=== PATIENT | male | born 1950 | race Caucasian/White ===

== ENCOUNTER 2017-02-24 08:00 | Outpatient (CLI) | payer BC ==
[2017-02-24 14:45] LABS: BASOPHILS % (AUTO) 0.4 %; EOSINOPHILS # (AUTO) 0.1 10^3/uL (0.0-0.7); EOSINOPHILS % (AUTO) 1.9 %; HCT - HEMATOCRIT 44.9 % (42.0-52.0); HGB - HEMOGLOBIN 15.8 g/dL (14.0-18.0); LYMPHOCYTES # (AUTO) 1.3 10^3/uL (1.5-3.5); LYMPHOCYTES % (AUTO) 29.5 %; MEAN CORPUSCULAR HEMOGLOBIN 30.2 pg (27.0-31.0); MEAN CORPUSCULAR HGB CONC 35.1 g/dL (32.0-36.0); MEAN PLATELET VOLUME 7.4 fL (7.4-11.4); MONOCYTES # (AUTO) 0.4 10^3/uL (0.0-1.0); MONOCYTES % (AUTO) 9.4 %; NEUTROPHILS # (AUTO) 2.6 10^3/uL (1.5-6.6); NEUTROPHILS % (AUTO) 58.8 %; NUCLEATED RED BLOOD CELLS AUTO 0.1 /100WBC; RED BLOOD COUNT 5.22 10^6/uL (4.70-6.10); UNCORRECTED WHITE BLOOD COUNT 4.4 x10^3/uL; WHITE BLOOD COUNT 4.4 x10^3/uL (4.8-10.8)
[2017-02-24 15:03] LABS: ALBUMIN/GLOBULIN RATIO 1.4 (1.0-2.2); BILIRUBIN,TOTAL 1.7 mg/dL (0.2-1.0); CALCIUM 9.2 mg/dL (8.5-10.3); CREATININE 0.9 mg/dL (0.6-1.2); POTASSIUM 3.8 mmol/L (3.5-5.0); TOTAL PROTEIN 7.1 g/dL (6.7-8.2)
[2017-02-24 15:10] LABS: HEMOGLOBIN A1C 0.6 g/dL
== END 2017-02-24 08:01 | disposition home or self-care (01) ==
LOC: LAB.N 08:00
PROVIDERS: ATTEND Internal Medicine
DX: R73.9 Hyperglycemia, unspecified (principal); I10 Essential (primary) hypertension; N40.0 Benign prostatic hyperplasia without lower urinary tract symptoms
CPT/HCPCS: 36415; 80053; 83036; 85025

== ENCOUNTER 2017-07-25 08:00 | Outpatient (CLI) | payer BC ==
[2017-07-25 20:01] LABS: PSA FREE 0.49 ng/mL (0.16-2.81)
[2017-07-25 20:02] LABS: PSA TOTAL 2.27 ng/mL (0.000-2.000)
== END 2017-07-25 08:01 ==
LOC: LAB.N 08:00
PROVIDERS: ATTEND Urology
DX: R39.89 Other symptoms and signs involving the genitourinary system (principal)
CPT/HCPCS: 36415; 84154

== ENCOUNTER → 2018-02-20 | Outpatient (CLI) | payer BC ==
[2018-02-20 13:52] LABS: BASOPHILS % (AUTO) 0.7 %; EOSINOPHILS # (AUTO) 0.1 10^3/uL (0.0-0.7); EOSINOPHILS % (AUTO) 2.3 %; HGB - HEMOGLOBIN 15.6 g/dL (14.0-18.0); LYMPHOCYTES # (AUTO) 1.2 10^3/uL (1.5-3.5); LYMPHOCYTES % (AUTO) 26.8 %; MEAN CORPUSCULAR HEMOGLOBIN 30.6 pg (27.0-31.0); MEAN CORPUSCULAR HGB CONC 35.6 g/dL (32.0-36.0); MEAN CORPUSCULAR VOLUME 86.1 fL (80.0-94.0); MEAN PLATELET VOLUME 7.5 fL (7.4-11.4); MONOCYTES # (AUTO) 0.3 10^3/uL (0.0-1.0); MONOCYTES % (AUTO) 8.1 %; NEUTROPHILS # (AUTO) 2.7 10^3/uL (1.5-6.6); NEUTROPHILS % (AUTO) 62.1 %; PLT - PLATELET COUNT 202 10^3/uL (130-450); RED BLOOD COUNT 5.08 10^6/uL (4.70-6.10); RED CELL DISTRIBUTION WIDTH 12.9 % (12.0-15.0); WHITE BLOOD COUNT 4.3 x10^3/uL (4.8-10.8)
[2018-02-20 14:18] LABS: ALBUMIN 3.7 g/dL (3.2-5.5); ALBUMIN/GLOBULIN RATIO 1.2 (1.0-2.2); BILIRUBIN,TOTAL 1.8 mg/dL (0.2-1.0); CREATININE 0.8 mg/dL (0.6-1.2); TOTAL PROTEIN 6.8 g/dL (6.7-8.2)
[2018-02-20 14:34] LABS: HB2 TOTAL 17.2 g/dL; HEMOGLOBIN A1C 0.57 g/dL; HEMOGLOBIN A1C % 5.2 % (4.6-6.2)
== END ==
LOC: LAB.N 08:00
PROVIDERS: ATTEND Internal Medicine
DX: R73.9 Hyperglycemia, unspecified (principal); N40.0 Benign prostatic hyperplasia without lower urinary tract symptoms; I10 Essential (primary) hypertension; Z79.899 Other long term (current) drug therapy; Z12.5 Encounter for screening for malignant neoplasm of prostate
CPT/HCPCS: 36415; 80053; 83036; 84153; 85025

== ENCOUNTER 2018-09-10 08:00 | Outpatient (CLI) | payer BC | END 2018-09-10 23:59 | disposition home or self-care (01) | LOC: LAB.N 08:00 | PROVIDERS: ATTEND Urology | DX: R39.89 Other symptoms and signs involving the genitourinary system (principal) | CPT/HCPCS: 36415; 84153 ==

== ENCOUNTER 2018-11-26 10:40 | Outpatient (CLI) | payer BC ==
--- NOTE | 2018-11-27 11:23 | XRAY Report ---
Reason: MUSCLE SPASM, HIP JOINT PX, RIGHT Procedure Date: 11/26/2018 Accession Number: [id number] / [id number] Procedure: XR - Hip w/Pelvis 2-3V RT CPT Code: FULL RESULT: EXAM: RIGHT HIP RADIOGRAPHY EXAM DATE: 11/26/2018 11:49 AM. CLINICAL HISTORY: Muscle spasm, hip joint pain, right. COMPARISON: HIP W/PELVIS 2-3V RT 11/27/2015 12:40 PM. TECHNIQUE: 2 views. FINDINGS: Bones: Stable appearance of moderate joint space narrowing and osteophytic spurring of the acetabulum at the right hip. No femoral head collapse. No subluxation. Imaged portion of the sacroiliac joints appear stable and within normal limits. Joints: Normal. No dislocation. The hip joint space is preserved. Soft Tissues: Normal. No soft tissue swelling. IMPRESSION: No significant change in moderate degenerative changes at right hip. RADIA
== END 2018-11-26 10:41 | disposition home or self-care (01) ==
LOC: DI 10:40
PROVIDERS: ATTEND Family Medicine
DX: M16.11 Unilateral primary osteoarthritis, right hip (principal); M62.830 Muscle spasm of back

== ENCOUNTER 2019-03-01 11:23 | Outpatient (CLI) | payer BC ==
[2019-03-01 18:35] LABS: BASOPHILS % (AUTO) 0.5 %; EOSINOPHILS # (AUTO) 0.1 10^3/uL (0.0-0.7); EOSINOPHILS % (AUTO) 1.2 %; HGB - HEMOGLOBIN 15.3 g/dL (14.0-18.0); LYMPHOCYTES % (AUTO) 25.3 %; MEAN CORPUSCULAR HEMOGLOBIN 29.1 pg (27.0-31.0); MEAN CORPUSCULAR HGB CONC 32.3 g/dL (32.0-36.0); MEAN CORPUSCULAR VOLUME 90.1 fL (80.0-94.0); MEAN PLATELET VOLUME 9.3 fL (7.4-11.4); MONOCYTES # (AUTO) 0.4 10^3/uL (0.0-1.0); MONOCYTES % (AUTO) 9.1 %; NEUTROPHILS # (AUTO) 2.6 10^3/uL (1.5-6.6); NEUTROPHILS % (AUTO) 63.4 %; PLT - PLATELET COUNT 188 10^3/uL (130-450); RED BLOOD COUNT 5.26 10^6/uL (4.70-6.10); RED CELL DISTRIBUTION WIDTH 13.2 % (12.0-15.0); WHITE BLOOD COUNT 4.1 x10^3/uL (4.8-10.8)
[2019-03-01 18:49] LABS: ALBUMIN 4.2 g/dL (3.2-5.5); ALBUMIN/GLOBULIN RATIO 1.3 (1.0-2.2); ALKALINE PHOSPHATASE 64 IU/L (42-121); ALT ALANINE AMINOTRANSFERASE 16 IU/L (10-60); AST ASPARTATE AMINOTRANSFERASE 18 IU/L (10-42); BILIRUBIN,TOTAL 1.6 mg/dL (0.2-1.0); BUN - BLOOD UREA NITROGEN 18 mg/dL (6-20); CARBON DIOXIDE - CO2 30 mmol/L (21-32); CHLORIDE 105 mmol/L (101-111); CHOL/HDL RATIO 3.4 (<5.0); CHOLESTEROL 171 mg/dL; CREATININE 0.9 mg/dL (0.6-1.2); GFR - MDRD 84 (>89); GLUCOSE 106 mg/dL (70-100); HDL CHOLESTEROL 51 mg/dL; LDL CHOLESTEROL,CALCULATED 100 mg/dL; SODIUM 142 mmol/L (135-145); TOTAL PROTEIN 7.4 g/dL (6.7-8.2); VLDL CHOLESTEROL 20 mg/dL
== END 2019-03-01 23:59 | disposition home or self-care (01) ==
LOC: LAB.N 11:23
PROVIDERS: ATTEND Family Medicine
DX: E80.4 Gilbert syndrome (principal); R73.09 Other abnormal glucose; N40.0 Benign prostatic hyperplasia without lower urinary tract symptoms; I10 Essential (primary) hypertension
CPT/HCPCS: 36415; 80053; 80061; 83721; 84153; 84443; 85025

== ENCOUNTER 2019-09-25 14:35 | Outpatient (CLI) | payer OTHER, BC | END 2019-09-25 23:59 | disposition home or self-care (01) | LOC: LAB.WCP 14:35 | PROVIDERS: ATTEND Urology | DX: R97.20 Elevated prostate specific antigen [PSA] (principal) | CPT/HCPCS: 36415; 84153 ==

== ENCOUNTER 2020-04-27 08:57 | Outpatient (CLI) | payer BC, OTHER ==
[2020-04-27 12:43] LABS: BASOPHILS % (AUTO) 0.6 %; EOSINOPHILS # (AUTO) 0.2 10^3/uL (0.0-0.7); EOSINOPHILS % (AUTO) 3.9 %; HGB - HEMOGLOBIN 15.8 g/dL (14.0-18.0); LYMPHOCYTES # (AUTO) 1.4 10^3/uL (1.5-3.5); LYMPHOCYTES % (AUTO) 28.2 %; MEAN CORPUSCULAR HEMOGLOBIN 29.3 pg (27.0-31.0); MEAN CORPUSCULAR HGB CONC 33.6 g/dL (32.0-36.0); MEAN PLATELET VOLUME 9.2 fL (7.4-11.4); MONOCYTES # (AUTO) 0.5 10^3/uL (0.0-1.0); MONOCYTES % (AUTO) 9.9 %; NEUTROPHILS # (AUTO) 2.8 10^3/uL (1.5-6.6); NEUTROPHILS % (AUTO) 57.2 %; PLT - PLATELET COUNT 197 10^3/uL (130-450); RED CELL DISTRIBUTION WIDTH 13.1 % (12.0-15.0); WHITE BLOOD COUNT 4.9 x10^3/uL (4.8-10.8)
[2020-04-27 13:28] LABS: ALBUMIN 4.2 g/dL (3.2-5.5); ALBUMIN/GLOBULIN RATIO 1.4 (1.0-2.2); ALKALINE PHOSPHATASE 68 IU/L (42-121); ALT ALANINE AMINOTRANSFERASE 17 IU/L (10-60); AST ASPARTATE AMINOTRANSFERASE 20 IU/L (10-42); BUN - BLOOD UREA NITROGEN 13 mg/dL (6-20); CALCIUM 9.2 mg/dL (8.5-10.3); CARBON DIOXIDE - CO2 28 mmol/L (21-32); CHLORIDE 105 mmol/L (101-111); CHOL/HDL RATIO 3.6 (<5.0); CHOLESTEROL 173 mg/dL; CREATININE 0.9 mg/dL (0.6-1.2); GLUCOSE 104 mg/dL (70-100); HDL CHOLESTEROL 48 mg/dL; LDL CHOLESTEROL,CALCULATED 97 mg/dL; TOTAL PROTEIN 7.3 g/dL (6.7-8.2); VLDL CHOLESTEROL 28 mg/dL
[2020-04-27 14:02] LABS: HEMOGLOBIN A1c% 5.3 % (4.27-6.07)
== END 2020-04-27 23:59 ==
LOC: LAB.WCP 08:57
PROVIDERS: ATTEND Family Medicine
DX: I10 Essential (primary) hypertension (principal); R73.9 Hyperglycemia, unspecified; N40.0 Benign prostatic hyperplasia without lower urinary tract symptoms; E80.4 Gilbert syndrome
CPT/HCPCS: 36415; 80053; 80061; 83036; 83721; 84153; 84443; 85025

== ENCOUNTER 2020-09-13 14:00 | Outpatient (CLI) | payer OTHER | END 2020-09-13 14:01 | disposition short-term general hospital (02) | LOC: EMS 14:00 | DX: R07.9 Chest pain, unspecified (principal) | CPT/HCPCS: A0425; A0433 ==

== ENCOUNTER 2020-09-29 08:00 | Outpatient (CLI) | payer OTHER | END 2020-09-29 23:59 | disposition home or self-care (01) | LOC: LAB.WCP 08:00 | PROVIDERS: ATTEND Urology | DX: R97.20 Elevated prostate specific antigen [PSA] (principal) | CPT/HCPCS: 36415; 84153 ==

== ENCOUNTER 2020-10-09 08:00 | Outpatient (CLI) | payer OTHER ==
[2020-10-09 13:04] LABS: BUN - BLOOD UREA NITROGEN 14 mg/dL (6-20); CALCIUM 9.4 mg/dL (8.5-10.3); CARBON DIOXIDE - CO2 29 mmol/L (21-32); CHLORIDE 100 mmol/L (101-111); CHOL/HDL RATIO 2.1 (<5.0); CHOLESTEROL 92 mg/dL; GFR - MDRD 74 (>89); GLUCOSE 105 mg/dL (70-100); HDL CHOLESTEROL 43 mg/dL; LDL CHOLESTEROL,CALCULATED 37 mg/dL; LDL/HDL RATIO 0.9 (<3.6); SODIUM 138 mmol/L (135-145); TRIGLYCERIDES 58 mg/dL; VLDL CHOLESTEROL 12 mg/dL
== END 2020-10-09 23:59 | disposition home or self-care (01) ==
LOC: LAB.WCP 08:00
PROVIDERS: ATTEND Internal Medicine Cardiovascular Disease
DX: E78.2 Mixed hyperlipidemia (principal)
CPT/HCPCS: 36415; 80048; 80061; 83721

== ENCOUNTER 2022-09-25 14:11 | Outpatient (CLI) | payer OTHER | END 2022-09-25 23:59 | disposition short-term general hospital (02) | LOC: EMS 14:11 | DX: R09.89 Other specified symptoms and signs involving the circulatory and respiratory systems (principal); Z95.0 Presence of cardiac pacemaker | CPT/HCPCS: A0425; A0429 ==

== ENCOUNTER 2023-11-03 15:29 | Emergency (ER) | payer OTHER ==
--- NOTE | 2023-11-03 15:54 | ED Physician Documentation ---
History of Present Illness - Stated complaint Stated Complaint: - Chief complaint Chief Complaint: Abd Pain - History obtained from History obtained from: Patient - History of Present Illness Pain level max: 0 Pain level now: 0 - Additonal information Additional information: Patient is a 72-year-old male who is status post a TURP 3 days ago at [facility]. He had blood clots that clogged his urinary catheter yesterday, was irrigated in the urology office. He states that the catheter is draining bloody urine still and with that it has not been draining as much as he would expect, therefore he was directed to the emergency department for evaluation. He states he stopped his Pradaxa 5 days ago and aspirin 8 days ago. No abdominal pain. No suprapubic pain. He is taking oxybutynin for bladder spasms. Review of Systems Constitutional: denies: Fever, Chills GI: denies: Vomiting, Diarrhea Skin: denies: Rash Musculoskeletal: denies: Neck pain, Back pain Neurologic: denies: Headache PD PAST MEDICAL HISTORY - Past Medical History Past Medical History: Yes Cardiovascular: Hypertension Respiratory: None Endocrine/Autoimmune: None GI: Hiatal hernia, Other : Benign prostate hypertrophy, Frequency HEENT: Other Psych: None Musculoskeletal: None Derm: Eczema - Past Surgical History Past Surgical History: Yes General: Cholecystectomy - Present Medications Home Medications: Ambulatory Orders Medication Instructions Recorded Confirmed Aspirin [Aspir 81] 81 mg PO DAILY 02/24/15 03/03/15 Doxazosin Mesylate 8 mg PO DAILY 02/24/15 03/06/15 Finasteride 5 mg PO ONCE 02/24/15 03/06/15 lisinopriL [Lisinopril] 10 mg PO DAILY 02/24/15 03/06/15 Cholecalciferol (Vitamin D3) 2,000 unit PO DAILY 03/03/15 03/06/15 [Vitamin D-3] Glucosa [place] 2Kcl/Chondroitin [place] 1 each PO DAILY 03/03/15 03/06/15 [Glucosamine & Chondroitin Cap] [place]-3 Fatty Acids [Fish Oil] 300 mg PO DAILY 03/03/15 03/06/15 - Allergies Allergies/Adverse Reactions: Allergies Allergy/AdvReac Type Severity Reaction Status Date / Time latex Allergy Unknown Rash Verified 11/03/23 15:33 crab Allergy Itching Verified 08/02/24 15:33 - Social History Does the pt smoke?: No Smoking Status: Never smoker Does the pt drink ETOH?: No Does the pt have substance abuse?: No - Immunizations Immunizations are current?: Yes - POLST Patient has POLST: No PD ED PE NORMAL - Vitals Vital signs reviewed: Yes - General General: Alert and oriented X 3, No acute distress - HEENT HEENT: Moist mucous membranes - Neck Neck: Supple, no meningeal sign - Cardiac Cardiac: RRR - Respiratory Respiratory: No respiratory distress, Clear bilaterally - Abdomen Abdomen: Soft, Non tender, Non distended - Derm Derm: Warm and dry - Neuro Neuro: Alert and oriented X 3 - Psych Psych: Normal mood, Normal affect Results - Vitals Vitals: Vital Signs - 24 hr 11/03/23 15:33 Temperature 36.8 C Heart Rate 60 Respiratory 16 Rate Blood Pressure 100/60 O2 Saturation 99 Oxygen O2 Source Room air - Labs Labs: Laboratory Tests 11/03/23 11/03/23 11/03/23 15:51 15:51 15:51 WBC 5.9 RBC 4.46 L Hgb 13.3 L Hct 39.8 L MCV 89.2 MCH 29.8 MCHC 33.4 RDW 13.0 Plt Count 165 MPV 8.7 Neut # (Auto) 4.0 Lymph # (Auto) 1.0 L [place] # (Auto) 0.8 Eos # (Auto) 0.1 Baso # (Auto) 0.0 Absolute Nucleated RBC 0.00 Nucleated RBC % 0.0 PT 13.5 H INR 1.2 Sodium 135 Potassium 3.5 Chloride 102 Carbon Dioxide 27 Anion Gap 6.0 BUN 21 H Creatinine 1.2 Estimated GFR (MDRD) 59 L Glucose 116 H Calcium 8.8 Total Bilirubin 2.0 H AST 19 ALT 19 Alkaline Phosphatase 71 Total Protein 6.1 L Albumin 3.6 Globulin 2.5 Albumin/Globulin Ratio 1.4 PD Medical Decision Making - ED course Complexity details: reviewed results, re-evaluated patient, considered differential, d/w patient ED course: Bedside ultrasound reveals very little urine in the bladder. The bladder was irrigated, clear urine returned. All of the fluid that was placed into the bladder returned into the bag. No significant clots. The patient was instructed on how to perform gentle irrigation at home if needed. He was given a syringe and saline for this as well. He has an appointment on Monday with his urologist. No significant lab abnormalities. Patient counseled regarding signs and symptoms for which I believe and urgent re-evaluation would be necessary. Patient with good understanding of and agreement to plan and is comfortable going home at this time This document was made in part using voice recognition software. While efforts are made to proofread this document, sound alike and grammatical errors may occur. Departure - Departure Disposition: Home, Self Care Clinical Impression: Hematuria Qualifiers: Hematuria type: gross Qualified Code(s): R31.0 - Gross hematuria Condition: Good Instructions: ED Hematuria Follow-Up: [facility], [Primary Care Provider] - Within 1 week Comments: Please follow-up with your urologist on Monday as scheduled. Your Carrillo catheter was irrigated today. You can also irrigate at home as instructed. P lease return if you worsen. Forms: PCP List
[2023-11-03 16:08] LABS: BASOPHILS % (AUTO) 0.5 %; EOSINOPHILS # (AUTO) 0.1 10^3/uL (0.0-0.7); EOSINOPHILS % (AUTO) 1.4 %; HCT - HEMATOCRIT 39.8 % (42.0-52.0); HGB - HEMOGLOBIN 13.3 g/dL (14.0-18.0); LYMPHOCYTES % (AUTO) 16.7 %; MEAN CORPUSCULAR HEMOGLOBIN 29.8 pg (27.0-31.0); MEAN CORPUSCULAR HGB CONC 33.4 g/dL (32.0-36.0); MEAN CORPUSCULAR VOLUME 89.2 fL (80.0-94.0); MEAN PLATELET VOLUME 8.7 fL (7.4-11.4); MONOCYTES # (AUTO) 0.8 10^3/uL (0.0-1.0); MONOCYTES % (AUTO) 13.2 %; NEUTROPHILS % (AUTO) 67.9 %; PLT - PLATELET COUNT 165 10^3/uL (130-450); RED BLOOD COUNT 4.46 10^6/uL (4.70-6.10); WHITE BLOOD COUNT 5.9 x10^3/uL (4.8-10.8)
[2023-11-03 16:20] LABS: INR 1.2 (0.8-1.2); PT - PROTHROMBIN TIME 13.5 secs (9.9-12.6)
[2023-11-03 16:26] LABS: ALBUMIN 3.6 g/dL (3.2-5.5); ALBUMIN/GLOBULIN RATIO 1.4 (1.0-2.2); CALCIUM 8.8 mg/dL (8.5-10.3); CREATININE 1.2 mg/dL (0.6-1.3); POTASSIUM 3.5 mmol/L (3.5-4.5); TOTAL PROTEIN 6.1 g/dL (6.4-8.9)
[2023-11-03 16:46] VITALS: BP 107/64; O2SAT 100
== END 2023-11-03 16:37 | disposition home or self-care (01) ==
LOC: ED 15:29
DX: R31.0 Gross hematuria (principal); Z90.79 Acquired absence of other genital organ(s); Z96.0 Presence of urogenital implants
CPT/HCPCS: 36415; 51700; 80053; 85025; 85610; 99282

== ENCOUNTER 2025-03-24 13:27 | Observation (INO) ==
--- NOTE | 2025-03-24 13:30 | ED Physician Documentation ---
PD HPI CHEST PAIN Stated complaint Stated Complaint: CP Chief complaint Chief Complaint: Cardiac Additional information Additional information: 74-year-old male with history of NE in 2020 resulting in a stent placement and pacemaker presents emergency department for multiple complaints. Patient says he started experiencing chest pain that he originally thought was acid reflux for last 3 to 4 days yesterday he started to notice that he was having potentially low-grade fevers as he was experiencing rigors at home today when he woke up he started experiencing worsening chest pain that felt very similar to previous NE it resulted in again fevers and chills and rigors he called 911 to bring him into the ER for further evaluation he currently feels like his chest pain symptoms have improved significantly but still feeling some discomfort. Meds/Allgy Home Medications Ambulatory Orders Medication Instructions Recorded Confirmed aspirin 81 mg tablet,delayed 81 mg PO DAILY 02/24/15 1 05/25/24 release (Aspir-) finasteride 5 mg tablet 5 mg PO ONCE 02/24/15 cholecalciferol (vitamin D3) 50 2,000 unit PO DAILY 03/24/25 mcg (2,000 unit) capsule (Vitamin D3) glucosamine sulfate dipotassium Cl 1 ea PO DAILY 03/0303/24/25 500 mg-chondroitin 400 mg capsule (Glucosamine Sulfate 2 KCL-Chondroitin) atorvastatin 40 mg tablet 40 mg PO DAILY 11/03/2303/04 sacubitril 24 mg-valsartan 26 mg 1 ea PO DAILY 4 03/24/25 tablet (Entresto) bisoprolol fumarate 2.5 mg tablet 2.5 mg PO QDAY 01/0203/24/25 dabigatran etexilate 75 mg capsule 75 mg PO BID 03/24/25 nitroglycerin 0.4 mg sublingual mg sublingual 01/02/25 01/02/25 tablet silodosin 4 mg capsule 4 mg PO QDAY 01/02/25 methimazole 10 mg tablet 10 mg PO TID 03/24/25 Allergies Allergies Allergy/AdvReac Type Severity Reaction Status Date / Time crab Allergy Severe Itching Verified 03/24/25 13:38 latex Allergy Severe Rash Verified 03/24/25 13:38 tadalafil Allergy Cramps Verified 03/24/25 13:38 PFSH Active Problems All Active Problems (Updated 03/24/25 @ 18:37 by Brandyn Chacon MD) H/O transurethral resection of prostate (Acute) Amiodarone-induced thyroiditis (Acute) Ischemic cardiomyopathy with implantable cardioverter-defibrillator (ICD) (Acute) Coronary artery disease (Acute) Viral syndrome (Acute) Febrile (Acute) Atrial fibrillation with rapid ventricular response (Chronic) Medical History Medical History Pacemaker Afib Myocardial infarct Myocardial infarct Surgical History Surgical History History of heart surgery Social History Social History Smoking Status: Never smoker Do you dip or chew tobacco?: No Do you vape?: No Level: Independent Do you feel safe in your home environment?: Yes History of physical, verbal, emotional, or financial abuse?: No ETOH Use: POLST Patient has POLST: No Exam Exam Vital Signs: Vital Signs x48h Temp Pulse Resp BP Pulse Ox 03/24/25 17:45 120 H 18 83/61 L 92 03/24/25 17:30 109 H 18 96/65 94 03/24/25 17:15 113 H 18 105/64 95 03/24/25 17:00 120 H 22 111/70 95 03/24/25 16:45 107 H 18 111/70 95 03/24/25 16:30 120 H 18 95/64 95 03/24/25 16:15 121 H 18 95/68 96 03/24/25 16:00 39 C H 117 H 19 95 03/24/25 15:52 120 H 19 110/72 95 03/24/25 13:33 37.1 C 97 18 100/67 100 Constitutional normal general appearance, no apparent distress, average body habitus, no limitations and alert HENMT normocephalic and head/scalp atraumatic Eyes PERRL Neck/C-Spine visual inspection normal Respiratory breath sounds equal bilaterally and normal respiratory effort Cardiovascular heart rate abnormal (tachycardic) and rhythm abnormal (irregular) Gastrointestinal abdomen normal to inspection and abdomen soft to palpation Genitourinary no CVA tenderness Extremities normal to inspection Skin skin color normal and no rash Results Vitals Vitals: Vital Signs - 24 hr 03/24/25 13:33 03/24/25 15:52 03/24/25 16:00 Temperature 37.1 C 39 C H Temperature Source Oral Temporal Artery Scan Pulse Rate 97 120 H 117 H Respiratory Rate 18 19 19 Blood Pressure 100/67 110/72 O2 Saturation 100 95 95 O2 Source Room air Room air Room air Pain Intensity 4 0 2 03/24/25 16:15 03/24/25 16:30 03/24/25 16:44 Temperature Temperature Source Pulse Rate 121 H 120 H Respiratory Rate 18 18 Blood Pressure 95/68 95/64 O2 Saturation 96 95 O2 Source Room air Room air Pain Intensity 0 03/24/25 16:45 03/24/25 17:00 03/24/25 17:15 Temperature Temperature Source Pulse Rate 107 H 120 H 113 H Respiratory Rate 18 22 18 Blood Pressure 111/70 111/70 105/64 O2 Saturation 95 95 95 O2 Source Room air Room air Room air Pain Intensity 0 03/24/25 17:30 03/24/25 17:45 Temperature Temperature Source Pulse Rate 109 H 120 H Respiratory Rate 18 18 Blood Pressure 96/65 83/61 L O2 Saturation 94 92 O2 Source Room air Room air Pain Intensity Oxygen O2 Source Room air EKG (time done) 1329: EKG releavant findings:: EKG personally interpreted by author of this note. Relevant findings are: Rate: Rate (enter#) (99) Rhythm: Atrial fibrillation [place]: Normal Intervals: Normal [place] Ischemia: Normal ST segments Computer interpretation: Agree with computer Labs Labs: Laboratory Tests 03/24/25 03/24/25 03/24/25 13:51 14:30 16:15 WBC 8.0 RBC 5.26 Hgb 14.6 Hct 44.9 MCV 85.4 MCH 27.8 MCHC 32.5 RDW 13.1 Plt Count 209 MPV 8.9 Neut # (Auto) 5.3 Lymph # (Auto) 1.7 [place] # (Auto) 1.0 Eos # (Auto) 0.0 Baso # (Auto) 0.0 Absolute Nucleated RBC 0.00 Nucleated RBC % 0.0 Sodium 137 Potassium 4.0 Chloride 102 Carbon Dioxide 29 Anion Gap 6.0 BUN 15 Creatinine 0.8 Estimated GFR (MDRD) 94 Glucose 98 Lactic Acid Calcium 9.0 Total Bilirubin 2.1 H AST 17 ALT 18 Alkaline Phosphatase 90 Troponin I High Sens 6.6 7.4 B-Natriuretic Peptide 348 H Total Protein 6.7 Albumin 3.9 Globulin 2.8 Albumin/Globulin Ratio 1.4 Lipase 19 TSH < 0.01 L Urine Color YELLOW Urine Clarity CLEAR Urine pH 7.0 Ur Specific [place] 1.015 Urine Protein NEGATIVE Urine Glucose (UA) NEGATIVE Urine Ketones NEGATIVE Urine Occult Blood NEGATIVE Urine Nitrite NEGATIVE Urine Bilirubin NEGATIVE Urine Urobilinogen 0.2 (NORMAL) Ur Leukocyte Esterase NEGATIVE Ur Microscopic Review NOT INDICATED Urine Culture Comments NOT INDICATED Nasal Adenovirus (PCR) Nasal B. parapertussis DNA (PCR) Nasal Coronavir 229E PCR Nasal Coronavir HKU1 PCR Nasal Coronavir NL63 PCR Nasal Coronavir OC43 PCR Nasal Enterovir/Rhinovir PCR Nasal Influenza B PCR Nasal Influenza A PCR Nasal Parainfluen 1 PCR Nasal Parainfluen 2 PCR Nasal Parainfluen 3 PCR Nasal Parainfluen 4 PCR Nasal RSV (PCR) Nasal B.pertussis DNA PCR Nasal C.pneumoniae (PCR) [place] Human Metapneumo PCR Nasal M.pneumoniae (PCR) Nasal SARS-CoV-2 (PCR) 03/24/25 03/24/25 16:45 17:01 WBC RBC Hgb Hct MCV MCH MCHC RDW Plt Count MPV Neut # (Auto) Lymph # (Auto) [place] # (Auto) Eos # (Auto) Baso # (Auto) Absolute Nucleated RBC Nucleated RBC % Sodium Potassium Chloride Carbon Dioxide Anion Gap BUN Creatinine Estimated GFR (MDRD) Glucose Lactic Acid 1.0 Calcium Total Bilirubin AST ALT Alkaline Phosphatase Troponin I High Sens B-Natriuretic Peptide Total Protein Albumin Globulin Albumin/Globulin Ratio Lipase TSH Urine Color Urine Clarity Urine pH Ur Specific [place] Urine Protein Urine Glucose (UA) Urine Ketones Urine Occult Blood Urine Nitrite Urine Bilirubin Urine Urobilinogen Ur Leukocyte Esterase Ur Microscopic Review Urine Culture Comments Nasal Adenovirus (PCR) NOT DETECTED Nasal B. parapertussis DNA (PCR) NOT DETECTED Nasal Coronavir 229E PCR NOT DETECTED Nasal Coronavir HKU1 PCR NOT DETECTED Nasal Coronavir NL63 PCR NOT DETECTED Nasal Coronavir OC43 PCR NOT DETECTED Nasal Enterovir/Rhinovir PCR NOT DETECTED Nasal Influenza B PCR NOT DETECTED Nasal Influenza A PCR NOT DETECTED Nasal Parainfluen 1 PCR NOT DETECTED Nasal Parainfluen 2 PCR NOT DETECTED Nasal Parainfluen 3 PCR NOT DETECTED Nasal Parainfluen 4 PCR NOT DETECTED Nasal RSV (PCR) NOT DETECTED Nasal B.pertussis DNA PCR NOT DETECTED Nasal C.pneumoniae (PCR) NOT DETECTED [place] Human Metapneumo PCR NOT DETECTED Nasal M.pneumoniae (PCR) NOT DETECTED Nasal SARS-CoV-2 (PCR) NOT DETECTED Rads (name of study) Chest x-ray: Relevant Findings:: Final report received and EMP independent interpretation of test Interpretation: IMPRESSION: No acute cardiopulmonary process. PD Medical Decision Making ED course ED course: 74-year-old male with a significant cardiac history including prior myocardial infarction with stent placement in 2020, ischemic cardiomyopathy with ICD/pacemaker, chronic atrial fibrillation on anticoagulation, and coronary artery disease who presents with several days of chest pain and acute onset of fever, chills, and rigors. The patient reports that todays chest pain felt similar to his prior NE, prompting EMS activation; although the pain improved in the emergency department, he continues to have residual discomfort. On arrival, he was noted to be tachycardic with an irregular rhythm, intermittently hypotensive with systolic blood pressures as low as 83 mmHg, and later developed high-grade fever to 39C, raising concern for hemodynamic instability and systemic illness. Physical examination confirmed atrial fibrillation with rapid ventricular response and fever, without an immediately identifiable infectious source. The differential diagnosis included acute coronary syndrome, sepsis or viral syndrome, atrial fibrillation with RVR causing demand ischemia, or myocarditis. Serial high-sensitivity troponins were normal, and EKG showed atrial fibrillation without ischemic ST changes, making STEMI less likely though not excluding NSTEMI or demand ischemia; BNP was elevated, consistent with underlying cardiomyopathy. Infectious workup revealed high fever and rigors with negative respiratory viral panel, normal lactate, and no evidence of pneumonia on chest x-ray, though early sepsis remains a concern given the patients age, comorbidities, fever, hypotension, and tachyarrhythmia. Given the combination of high-risk chest pain in a patient with known CAD and prior NE, atrial fibrillation with RVR and intermittent hypotension, fever. Spoke with Alexandre tank setter for consult and spoke with Dr. Nash Who does not believe that patient needs to be transferred for any sort of cardioversion she believes that the A-fib RVR is being driven by the unknown source of the fever. 2 sets of blood cultures have been collected. Patient will need to be admitted for close hemodynamic monitoring and Ongoing fever workup. Patient is agreeable to be admitted I spoke with the on-call hospitalist who is also graciously agreed to accept him to his services Consults Consults: Discussed case with ([facility] Dr. Nash) and Request programmer analyst consultant evaluate patient Discharge Plan Discharge Patient Disposition: [facility] DC/Xfer Clinical Impression: Atrial fibrillation with rapid ventricular response, Febrile Interventions: ED Admission Assessment Last Done: 03/24/25 18:33 Vitals documented within 30 minutes of discharge?: Yes
--- OUTSIDE RECORDS SUMMARY | 2025-03-24 13:52 | EXTERNAL MEDICAL SUMMARY RPT | Continuity of Care Document ---
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 .id [facility] Itching (no severity) 2025-01-02 10:00 [id number]^crab^^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 b^^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 .id [facility] Itching (no severity) 2025-03-24 10:00 [id number]^crab^^mold 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 b^^allergy .id [facility] Itching (no severity) Problems date description facility 2025-01-02 11:26 Acute upper respiratory infecti on, unspecified [facility] 2025-01-02 12:48 Acute pharyngitis, unspecified [facility] 2025-01-02 12:48 Acute upper respiratory infecti on, unspecified [facility] 2025-01-03 00:05 Acute upper respiratory infecti on, unspecified [facility] 2025-01-07 13:05 Acute upper respiratory infecti on, unspecified [facility] Results/Labs test date facility value unit notes Result panel 1 CUL, THROAT (STREP SCREEN) 2025-01-02 11:06 [facility] CXPCULTURE IN PROGRESS. RESULTS TO FOLLOW. (missing) (missing) CUL, THROAT (STREP SCREEN) 2025-01-02 11:06 [facility] MOFNBSCULTURE. (missing) (missing) CUL, THROAT (STREP SCREEN) 2025-01-02 11:06 [facility] MOFNBSMIXED OROPHARYNGEAL PORTIA PRESENT. NO BETA STREP PRESENT IN (missing) (missing) Social History date description facility
[2025-03-24 13:54] LABS: HCT - HEMATOCRIT 44.9 % (42.0-52.0); HGB - HEMOGLOBIN 14.6 g/dL (14.0-18.0); MEAN PLATELET VOLUME 8.9 fL (7.4-11.4); NRBC ABSOLUTE COUNT (AUTO) 0.00 x10^3/uL; NUCLEATED RED BLOOD CELLS AUTO 0.0 /100WBC; PLT - PLATELET COUNT 209 10^3/uL (130-450); RED CELL DISTRIBUTION WIDTH 13.1 % (12.0-15.0)
[2025-03-24 14:09] LABS: ALT ALANINE AMINOTRANSFERASE 18.0 IU/L (10-60); AST ASPARTATE AMINOTRANSFERASE 17.0 IU/L (10-42); BUN - BLOOD UREA NITROGEN 15.0 mg/dL (6-20); CARBON DIOXIDE - CO2 29.0 mmol/L (21-32); CREATININE 0.8 mg/dL (0.6-1.3); GFR - MDRD 94.0 (>89)
--- NOTE | 2025-03-24 14:11 | XRAY Report ---
PROCEDURE: XR Chest 1V INDICATIONS: Chest pain TECHNIQUE: One view of the chest was acquired. COMPARISON: None. FINDINGS: Surgical changes and devices: Left chest wall AICD with cardiac leads Lungs and pleura: No pleural effusions or pneumothorax. No consolidation. Mediastinum: Mediastinal contours appear normal. Heart size is normal. Bones and chest wall: No suspicious bony lesions. Overlying soft tissues appear unremarkable. IMPRESSION: No acute cardiopulmonary process. Reviewed by: Dariana Alaniz MD, PhD on 03/24/2025 2:08 PM PST Approved by: Dariana Alaniz MD, PhD on 03/24/2025 2:08 PM PST Station ID: [id number]
[2025-03-24 14:15] LABS: TROPONIN I HIGH SENSITIVITY 6.6 ng/L (2.3-19.7)
[2025-03-24 14:49] LABS: GLUCOSE, URINE (UA) NEGATIVE (NEGATIVE); KETONES,URINE (UA) NEGATIVE (NEGATIVE); OCCULT BLOOD,URINE NEGATIVE (NEGATIVE)
[2025-03-24] MEDS: ACETAMINOPHEN 500 MG TABLET PO STA (16:44)
[2025-03-24] MEDS: SODIUM CHLORIDE 0.9% 1,000 ML IV STA ×2 (16:45→18:28)
[2025-03-24] MEDS: CALCIUM CARBONATE CHEW 500 MG TABLET PO STA (17:06)
--- NOTE | 2025-03-24 17:47 | HISTORY & PHYSICAL EXAMINATION ---
Chief Complaint Chief Complaint Chief Complaint: Chest pain History of Present Illness Admitted From Admitted From:: Home History Obtained From Records Reviewed: EMR History obtained from: Patient Exam Limitations: None History of Present Illness HPI Comment/Other: Patient is a 74-year-old male with a history of STEMI s/p stent placement, ischemic cardiomyopathy with recovered ejection fraction, AICD in place, pacemaker placement, atrial fibrillation on Pradaxa who presents with chest pain. Patient states that for the past couple days, he has been feeling unwell. He is normally very active, runs with his dog, plays tennis 3 times a week, and has been feeling more more winded and tired. Yesterday, he had some fevers and chills as well. Overnight, he had an episode of epigastric pain. He describes as burning with some radiation outward. At times, did feel like a pressure. He states that when he had his heart attack a few years ago, it presented the same way, which worried him. However, the day prior, he and lifting some heavy wood so he thought it was just a muscular strain. He did have some nitroglycerin tablets at home, but did not take them. Because he continues to feel unwell with fevers and chills, he decided to come in. The chest pain resolved on its own. At this time, he denies any cough, sputum production, nausea, vomiting, new skin rashes, changes in mental status. He has had no new medications. He has no sick contacts at home. The only thing he has is fevers, chills, mild bodyaches, and fatigue. He does state that his blood pressure runs on the lower side, normally with 80s to 90s systolic blood pressure. In the emergency room, patient's blood pressure was 100/67, his heart rate ranged from 97-1 20. He was febrile to 102.2. Respiratory rate was 18, he was saturating 95% on room air. Lab work was remarkable for a normal white count of 8, normal troponin x 2, slight elevation of his BNP at 348. UA was negative for any acute infection, respiratory viral panel was negative, and chest x-ray showed no acute cardiopulmonary process. ER provider did kindly discuss his presentation with his well logger, including the atrial fibrillation with rapid ventricular response, as well as the chest pain, and she was agreeable for him to stay here. His past medical history is as above: STEMI s/p stent placement, ischemic cardiomyopathy with recovered ejection fraction, AICD/pacemaker, atrial fibrillation on Pradaxa, amiodarone induced thyrotoxicosis, BPH s/p TURP. Medications include Pradaxa, bisoprolol, Entresto, aspirin. He is allergic to tadalafil. Surgical history includes cholecystectomy, cardiac stent placement, melanoma removals, TURP. He denies any alcohol use. He is never smoker. He denies any recreational drug use. He lives at home with his . He ambulates independently. He is very active, plays tennis multiple times a week, and runs as well. 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 Overall goals of care were discussed, and he is a full code. Meds/Allgy Home Medications Ambulatory Orders Medication Instructions Recorded Confirmed aspirin 81 mg tablet,delayed 81 mg PO DAILY 02/24/15 1 05/25/24 release (Aspir-) finasteride 5 mg tablet 5 mg PO ONCE 02/24/15 cholecalciferol (vitamin D3) 50 2,000 unit PO DAILY 03/24/25 mcg (2,000 unit) capsule (Vitamin D3) glucosamine sulfate dipotassium Cl 1 ea PO DAILY 03/0303/24/25 500 mg-chondroitin 400 mg capsule (Glucosamine Sulfate 2 KCL-Chondroitin) atorvastatin 40 mg tablet 40 mg PO DAILY 11/03/2303/04 sacubitril 24 mg-valsartan 26 mg 1 ea PO DAILY 4 03/24/25 tablet (Entresto) bisoprolol fumarate 2.5 mg tablet 2.5 mg PO QDAY 01/0203/24/25 dabigatran etexilate 75 mg capsule 75 mg PO BID 03/24/25 nitroglycerin 0.4 mg sublingual mg sublingual 01/02/25 01/02/25 tablet silodosin 4 mg capsule 4 mg PO QDAY 01/02/25 methimazole 10 mg tablet 10 mg PO TID 03/24/25 Allergies Allergies Allergy/AdvReac Type Severity Reaction Status Date / Time crab Allergy Severe Itching Verified 03/24/25 13:38 latex Allergy Severe Rash Verified 03/24/25 13:38 tadalafil Allergy Cramps Verified 03/24/25 13:38 PFSH Active Problems All Active Problems (Updated 03/24/25 @ 18:37 by Brandyn Chacon MD) H/O transurethral resection of prostate (Acute) Amiodarone-induced thyroiditis (Acute) Ischemic cardiomyopathy with implantable cardioverter-defibrillator (ICD) (Acute) Coronary artery disease (Acute) Viral syndrome (Acute) Febrile (Acute) Atrial fibrillation with rapid ventricular response (Chronic) Medical History Medical History Pacemaker Afib Myocardial infarct Myocardial infarct Surgical History Surgical History History of heart surgery Social History Social History Smoking Status: Never smoker Do you dip or chew tobacco?: No Do you vape?: No Do you feel safe in your home environment?: Yes History of physical, verbal, emotional, or financial abuse?: No ETOH Use: POLST Patient has POLST: No POLST on file?: No POLST CPR Status: Attempt Resuscitation (CPR) Level of Medical Intervention: Full Treatment Review of Systems Constitutional Reports: Fatigue, Fever, Chills, Malaise and Weakness; Denies: Poor appetite Eyes Denies: Pain, Irritation, Blurry vision, Vision loss or Diplopia Ears, nose, mouth, and throat Denies: Ear pain, Hearing loss, Tinnitus, Nose bleeds or Nasal discharge Cardiovascular Reports: Irregular heart rate, chest pain and palpitations; Denies: edema, Syncope or shortness of breath with exertion Respiratory Denies: Shortness of breath, Cough or Sputum production Gastrointestinal Reports: Abdominal pain; Denies: Abdominal distention, Nausea, Vomiting, Heartburn, Diarrhea or Constipation Genitourinary Denies: Painful urination, Urinary frequency or Urinary urgency Musculoskeletal Denies: Back pain, Extremity pain, Extremity swelling or Joint pain Integumentary/Breast Denies: Rash, Itching, Dryness, Redness or Skin pain Neurological Reports: General weakness; Denies: Headache, Weakness in extremities, Numbness in extremities, Abnormal gait or Dizziness Psychiatric Denies: Depression, Anxiety, Mood swings or Panic attacks Endocrine Reports: Fatigue; Denies: Excessive urination or Excessive thirst Hematologic/Lymphatic Denies: Anemia or Easy bruising Allergic/Immunologic Denies: Hives Prior Level of Functionality: Independent of ADLs. Very active. Lives with . Exam Exam Vital Signs: Vital Signs x48h Temp Pulse Resp BP Pulse Ox 03/24/25 17:00 120 H 22 111/70 95 03/24/25 16:45 107 H 18 111/70 95 03/24/25 16:30 120 H 18 95/64 95 03/24/25 16:15 121 H 18 95/68 96 03/24/25 16:00 102.2 F H 117 H 19 95 03/24/25 15:52 120 H 19 110/72 95 03/24/25 13:33 98.7 F 97 18 100/67 100 Constitutional normal general appearance, no apparent distress, average body habitus and no limitations HENMT normocephalic, head/scalp atraumatic and hearing grossly normal bilaterally Eyes PERRL, EOMs intact bilaterally and conjunctivae normal Neck/C-Spine visual inspection normal, trachea midline and cervical spine nontender Chest inspection of chest normal Respiratory breath sounds equal bilaterally, normal respiratory effort, clear to auscultation bilaterally, no wheezes, no rales and no retractions Cardiovascular heart rate abnormal (tachycardic), rhythm abnormal (irregular), no gallop, no rub and no murmur Gastrointestinal abdomen normal to inspection, abdomen soft to palpation, nontender to palpation and normoactive bowel sounds Genitourinary no CVA tenderness and bladder normal to palpation Back/Pelvis spine normal to inspection, no thoracic spine tenderness and no lumbar spine tenderness Extremities normal to inspection and no tenderness Neurology no movement abnormality noted and no focal motor deficit noted Psychiatry mental status grossly normal, oriented x3, thought process normal, cooperative and affect normal Skin skin color normal, no rash, no lesions and no wounds Conclusion/Plan Problem List (1) Atrial fibrillation with rapid ventricular response: Plan: Patient presented with chest pain, which he describes as epigastric with radiation outwards. At times, did feel like a pressure. Did not worsen with activity. Resolved at this time. Troponins negative x 2, BNP mildly elevated. EKG with no ischemic changes. ED provider spoke with well logger, no need for transfer at this time. He was found to be in atrial fibrillation with rapid ventricular response. Likely triggered by underlying febrile illness. Continue gentle IV fluid rehydration. Received 2 L of IV fluids, will continue maintenance fluids. Continue to monitor closely for signs of respiratory compromise. Patient takes bisoprolol at home, will continue. Will give an extra dose of beta-tara. Continue Pradaxa. Continue cardiac telemetry, cardiac diet. Patient has ablation (?cardioversion) scheduled for May. Advise close follow-up with cardiology on discharge. (2) Viral syndrome: Plan: Patient presented with fevers, chills, body aches. No respiratory symptoms at this time. Respiratory viral panel negative. No new rashes, no diarrhea, nausea, vomiting. Likely unspecified viral syndrome. Continue supportive management with IV fluids, adequate nutrition, adequate hydration. (3) Coronary artery disease: Qualifiers: Coronary Disease-Associated Artery/Lesion type: unspecified vessel or lesion type [place] vs. transplanted heart: [place] heart Associated angina: w [facility] angina Qualified Code(s): I25.10 - Atherosclerotic heart disease of [place] coronary artery without angina pectoris (4) Ischemic cardiomyopathy with implantable cardioverter-defibrillator (ICD): Plan: S/p STEMI with stent placement in the last 2 years. Initially, had ejection fraction of 30%, which recovered to 55% per patient. Remains on Entresto, bisoprolol, aspirin. Hold Entresto due to borderline blood pressures at this time. AICD/pacemaker in place. Patient currently in atrial fibrillation with rapid ventricular response. (5) Amiodarone-induced thyroiditis: Plan: Continue methimazole. TSH, T4 ordered. Follows with endocrinology. (6) H/O transurethral resection of prostate: Plan: Continue finasteride and silodosin. Lab Results Lab results reviewed: Yes 03/24/25 13:51 03/24/25 13:51 Diagnostic Imaging Results Diagnostic Imaging Results: positive Final report reviewed EKG Results EKG Interpreted Independently: Yes Core Measures Anticipated LOS I expect patient to be DC'd or transferred within 96 hours.: Yes Issues Hospital Issues and Management Plan: None anticipated. DVT/VTE - Prophylaxis VTE/DVT Device ordered at admit?: No VTE/DVT Prophylaxis med ordered at admit?: Yes Stroke - Rehab Assessment Rehab services assessment to be ordered?: No Not Ordered - Medical Reason: Not indicated
[2025-03-24 18:06] LABS: B. PARAPERTUSSIS- RESP PCR PAN NOT DETECTED; B. PERTUSSIS- RESP PCR PANEL NOT DETECTED; C. PNEUMONIAE- RESP PCR PANEL NOT DETECTED; CORONAVIRUS 229E-RESP PCR NOT DETECTED; CORONAVIRUS HKU1-RESP PCR NOT DETECTED; CORONAVIRUS NL63-RESP PCR NOT DETECTED; CORONAVIRUS OC43-RESP PCR NOT DETECTED; HUMAN METAPNEUMOVIRUS NOT DETECTED; INFLUENZA A- RESP PCR PANEL NOT DETECTED; INFLUENZA B - RESP PCR PANEL NOT DETECTED; M. PNEUMONIAE- RESP PCR PANEL NOT DETECTED; PARAINFLUENZA VIRUS 1 NOT DETECTED; PARAINFLUENZA VIRUS 2 NOT DETECTED; PARAINFLUENZA VIRUS 4 NOT DETECTED; RHINOVIRUS/ENTEROVIRUS NOT DETECTED; RSV- RESP PCR PANEL NOT DETECTED; SARS-CoV-2 -RESP PCR PANEL NOT DETECTED
[2025-03-24] MEDS ORDERED: ACETAMINOPHEN 325 MG TABLET PO PRN (18:24)
[2025-03-24] MEDS ORDERED: ONDANSETRON ODT 4 MG TABLET TL PRN (18:24)
[2025-03-24] MEDS ORDERED: SODIUM CHLORIDE FLUSH 0.9% 10 ML SYRINGE IVP PRN (18:24)
[2025-03-24] MEDS: METOPROLOL TARTRATE 25 MG TABLET PO STA (19:24)
[2025-03-24] MEDS: LACTATED RINGERS 1,000 ML IV SCH (20:00)
[2025-03-24] MEDS: APIXABAN 2.5 MG TABLET PO SCH (21:28)
[2025-03-24] MEDS: FINASTERIDE 5 MG TABLET PO SCH (21:28)
[2025-03-24] MEDS: MELATONIN 3 MG TABLET PO SCH (21:28)
--- NOTE | 2025-03-25 01:25 | PROVIDER PROGRESS NOTE ---
Hospitalist Cross-cover Note Cross-Cover Note Cross-Cover Note: per rn " pt admitted for AFib RVR, Viral Syndrome Just FYI, soft blood pressure of 90/45 (60).. remains asymptomatic. HR 90s Afib.. Per pt, he usually runs low. Metoprolol was held earlier due to soft BP. Had 1L bolus at 1930 which improved his BP in the 120/60s. Thanks" lr bolus 1L
[2025-03-25] MEDS: LACTATED RINGERS 1,000 ML IV ONE (01:42)
[2025-03-25] MEDS: SODIUM CHLORIDE FLUSH 0.9% 10 ML SYRINGE IVP SCH (01:42)
[2025-03-25 04:51] LABS: HCT - HEMATOCRIT 36.3 % (42.0-52.0); HGB - HEMOGLOBIN 11.9 g/dL (14.0-18.0); MEAN PLATELET VOLUME 8.8 fL (7.4-11.4); PLT - PLATELET COUNT 161.0 10^3/uL (130-450); RED CELL DISTRIBUTION WIDTH 13.2 % (12.0-15.0)
[2025-03-25 04:59] LABS: BUN - BLOOD UREA NITROGEN 13.0 mg/dL (6-20); CARBON DIOXIDE - CO2 26.0 mmol/L (21-32); CREATININE 0.7 mg/dL (0.6-1.3); GFR - MDRD 110.0 (>89)
[2025-03-25 07:31] VITALS: TEMP 97.9
[2025-03-25] MEDS: ATORVASTATIN 40 MG TABLET PO SCH (08:32)
[2025-03-25] MEDS: CHOLECALCIFEROL 25 MCG TABLET PO SCH (08:32)
[2025-03-25] MEDS: TAMSULOSIN 0.4 MG CAPSULE PO SCH (08:32)
[2025-03-25] MEDS: METOPROLOL TARTRATE 25 MG TABLET PO SCH (08:33)
[2025-03-25] MEDS: ASPIRIN EC 81 MG TABLET PO SCH (08:33)
--- NOTE | 2025-03-25 09:27 | Discharge Summary ---
"Discharge Summary Admit Date: 03/24/25 Discharge Date: 03/25/25 Discharging Provider: Dr. Brandyn Chacon Primary Care Provider: Dr. Toan Burk Code Status: Attempt Resuscitation Discharge Facility Name: Home, self care DIAGNOSES Discharge Diagnoses with Status of Each Condition: Atrial fibrillation with rapid ventricular responseresolved with IV hydration, and an extra dose of beta-tara. Continue home metoprolol. Patient did have chest pain with these episodes of rapid ventricular response. Troponin was negative x 2, BNP mildly elevated, EKG with no ischemic changes. ED provider spoke with Dr. Nash, who is a partner of Dr. Darden, patient's movable bulkhead installer. She was aware of chest pain, and the above presentation, and recommended monitoring overnight, and believe the viral syndrome/fever triggered the rapid ventricular response. Patient will need close follow-up in the outpatient. Continue bisoprolol and Pradaxa. Viral syndromepatient presented with fevers, chills, body aches. Respiratory viral panel negative, no new rashes or diarrhea, nausea, vomiting, chest x-ray negative, urinalysis negative. Afebrile for over 24 hours. Received IV fluids. Recommend rest, adequate nutrition and hydration at home. CAD, ischemic cardiomyopathy with AICD placements/p STEMI with stent placement in last 2 years. Per patient, he initially had ejection fraction 30%, which is now recovered to 55%. Remains on Entresto. He was advised to hold it because of his hypotension while here. Continue bisoprolol at this time. Amiodarone-induced thyroiditiscontinue methimazole. TSH was low, T4 within normal limits. Advised close follow-up with endocrinology on advice on when to stop his methimazole. Has an appointment in the next few weeks. History of TURPcontinue finasteride. HPI History of Present Illness: Patient is a 74-year-old male with a history of STEMI s/p stent placement, ischemic cardiomyopathy with recovered ejection fraction, AICD in place, pacemaker placement, atrial fibrillation on Pradaxa who presents with chest pain. Patient states that for the past couple days, he has been feeling unwell. He is normally very active, runs with his dog, plays tennis 3 times a week, and has been feeling more more winded and tired. Yesterday, he had some fevers and chills as well. Overnight, he had an episode of epigastric pain. He describes as burning with some radiation outward. At times, did feel like a pressure. He states that when he had his heart attack a few years ago, it presented the same way, which worried him. However, the day prior, he and lifting some heavy wood so he thought it was just a muscular strain. He did have some nitroglycerin tablets at home, but did not take them. Because he continues to feel unwell with fevers and chills, he decided to come in. The chest pain resolved on its own. At this time, he denies any cough, sputum production, nausea, vomiting, new skin rashes, changes in mental status. He has had no new medications. He has no sick contacts at home. The only thing he has is fevers, chills, mild bodyaches, and fatigue. He does state that his blood pressure runs on the lower side, normally with 80s to 90s systolic blood pressure. In the emergency room, patient's blood pressure was 100/67, his heart rate ranged from 97-1 20. He was febrile to 102.2. Respiratory rate was 18, he was saturating 95% on room air. Lab work was remarkable for a normal white count of 8, normal troponin x 2, slight elevation of his BNP at 348. UA was negative for any acute infection, respiratory viral panel was negative, and chest x-ray showed no acute cardiopulmonary process. ER provider did kindly discuss his presentation with his movable bulkhead installer, including the atrial fibrillation with rapid ventricular response, as well as the chest pain, and she was agreeable for him to stay here. His past medical history is as above: STEMI s/p stent placement, ischemic cardiomyopathy with recovered ejection fraction, AICD/pacemaker, atrial fibrillation on Pradaxa, amiodarone induced thyrotoxicosis, BPH s/p TURP. Medications include Pradaxa, bisoprolol, Entresto, aspirin. He is allergic to tadalafil. Surgical history includes cholecystectomy, cardiac stent placement, melanoma removals, TURP. He denies any alcohol use. He is never smoker. He denies any recreational drug use. He lives at home with his . He ambulates independently. He is very active, plays tennis multiple times a week, and runs as well. 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 Overall goals of care were discussed, and he is a full code. CONSULTS | PROCEDURES Procedures: Chest x-ray03/24no acute cardiopulmonary process. HOSPITAL COURSE Hospital Course: Patient is a 74-year-old male with a history of STEMI s/p stent placement, ischemic cardiomyopathy with recovered ejection fraction, AICD in place, pacemaker placement, atrial fibrillation on Pradaxa who presents with chest pain. He was having it at home, but had resolved by the time he came to the emergency room. He describes it as feeling like his acid reflux, burning pain in his epigastric region with radiation to the sides. It resolved on its own. He also had fevers, chills, body aches. Troponins were negative x 2, EKG had no ischemic changes. ED provider spoke with Dr. Nash, who is a partner of Dr. Darden, patient's movable bulkhead installer. She was aware of chest pain, and the above presentation, and recommended monitoring overnight, and believe the viral syndrome/fever triggered the rapid ventricular response. Patient will need close follow-up in the outpatient. Continue bisoprolol and Pradaxa. He was hydrated with IV fluids, and monitored closely overnight. The chest pain did not recur. He will need close and continued follow-up with his movable bulkhead installer and his primary care provider. He was advised to call and make an appointment within the next 1 to 2 weeks. He was advised extensively to return if he feels any chest pain as he is high risk with his previous cardiac history. He demonstrated understanding. He was discharged home in stable condition. ALLERGIES Allergies Allergy/AdvReac Type Severity Reaction Status Date / Time crab Allergy Severe Itching Verified 03/24/25 13:38 latex Allergy Severe Rash Verified 03/24/25 13:38 tadalafil Allergy Cramps Verified 03/24/25 13:38 MEDICATIONS Ambulatory Orders Medication Instructions Recorded Confirmed cholecalciferol (vitamin D3) 50 2,000 unit PO DAILY 03/24/25 mcg (2,000 unit) capsule (Vitamin D3) sacubitril 24 mg-valsartan 26 mg 0.5 tab PO BID 03/25/25 tablet (Entresto) Held on 03/25/25. Instructions: Resume on 04/01/25. Please hold until further conversations with your PCP/movable bulkhead installer. dabigatran etexilate 75 mg capsule 75 mg PO BID 03/24/25 nitroglycerin 0.4 mg sublingual 0.4 mg sublingual Q5M PRN chest 01/02/25 03/25/25 tablet pain silodosin 4 mg capsule 4 mg PO HS 01/02/25 03/25/25 methimazole 10 mg tablet 10 mg PO TID 03/24/25 atorvastatin 80 mg tablet (Lipitor) 80 mg PO QPM 03/2503/25/25 bisoprolol fumarate 5 mg tablet 5 mg PO BID 03/25/25 1 05/26/24 finasteride 5 mg tablet 5 mg PO DAILY 03/25/2503/25 glucosamine sulf dipot 1 cap PO DAILY 03/25/2503/04 chlr,msm,chond 550 mg-C 30 mg-paxton 1 mg capsule (Glucosamine Chondroitin) multivitamin (Daily Multi-Vitamin 1 tab PO DAILY 03/2503/25/25 tablet) PHYSICAL EXAM AT DISCHARGE Vital Signs: Vital Signs x48h Temp Pulse Pulse Resp BP BP Pulse Ox 03/25/25 09:39 83 99/57 L 03/25/25 08:33 86 96/57 L 03/25/25 07:30 97.9 F 86 16 96/57 L 97 Constitutional normal general appearance, no apparent distress, average body habitus and no limitations HENMT normocephalic, head/scalp atraumatic and hearing grossly normal bilaterally Eyes PERRL, EOMs intact bilaterally and conjunctivae normal Neck/C-Spine visual inspection normal, trachea midline and cervical spine nontender Chest inspection of chest normal Respiratory breath sounds equal bilaterally, normal respiratory effort, clear to auscultation bilaterally, no wheezes, no rales and no retractions Cardiovascular heart rate normal, rhythm abnormal (irregular), no gallop, no rub and no murmur Gastrointestinal abdomen normal to inspection, abdomen soft to palpation, nontender to palpation and normoactive bowel sounds Genitourinary no CVA tenderness and bladder normal to palpation Back/Pelvis spine normal to inspection, no thoracic spine tenderness and no lumbar spine tenderness Extremities normal to inspection and no tenderness Neurology no movement abnormality noted and no focal motor deficit noted Psychiatry mental status grossly normal, oriented x3, thought process normal, cooperative and affect normal Skin skin color normal, no rash, no lesions and no wounds LABS 03/25/25 04:24 03/25/25 04:24 DIAGNOSTIC IMAGING Diagnostic Imaging Results: Final report reviewed FOLLOW UP Follow Up: Follow up PCP. Follow up cardiology. TIME SPENT Time Spent in Discharge (Minutes): 35 Discharge Plan Discharge Patient Disposition: Home, Self Care Prescriptions: Continued cholecalciferol (vitamin D3) [Vitamin D3] 2,000 UNIT capsule 2,000 unit PO DAILY methimazole 10 mg tablet 10 mg PO TID Patient Comments: divides one pill into three, takes 1/3 TID bisoprolol fumarate 5 mg tablet 5 mg PO BID atorvastatin [Lipitor] 80 mg tablet 80 mg PO QPM finasteride 5 mg tablet 5 mg PO DAILY multivitamin [Daily Multi-Vitamin] Tablet 1 tab PO DAILY dabigatran etexilate 75 mg capsule 75 mg PO BID nitroglycerin 0.4 mg tablet, sublingual 0.4 mg sublingual Q5M PRN (Reason: chest pain) silodosin 4 mg capsule 4 mg PO HS Rx Instructions: must administer with a meal/food Held sacubitril-valsartan [Entresto] 1 EACH tablet 0.5 tab PO BID Hold Instructions: Resume on 04/01/25. Please hold until further conversations with your PCP/movable bulkhead installer. No Action Glucosamine Chondroitin 550-30-1 mg capsule 1 cap PO DAILY Diet: Cardiac Interventions: Discharge Last Done: 03/25/25 13:27 Discharge Checklist - Nursing Last Done: 03/25/25 13:27 Discharge Vital Signs (30 Minutes) Last Done: 03/25/25 13:41 Health Concerns: You came in after an episode of chest pain. With your extensive cardiac history, I can understand why you were concerned. When you first got here, you had a fever and chills. This has now resolved with rehydration. Your infectious workup so far has been negativeyour chest x-ray looks normal, your respiratory viral panel has been negative. Your urine does not show any signs of infection. Your infection numbers are also normal. While you were experiencing the above, you were in atrial fibrillation with a fast heart rate. As we discussed, this is usually in response to some type of stressor in your body. In your case, it may be due to the fevers and chills, and possible underlying viral syndrome. I'm glad your chest pain has resolved and has not recurred while you have been here. Your EKG does not show any evidence of heart attack. Your troponins, which are your heart enzymes have been normal. The ER physician spoke with a partner of your movable bulkhead installer, Dr. Canseco. They are aware of the above. Please schedule a follow up with them in the next 1-2 weeks. I know we had initially discussed putting blood pressure parameters on your Entresto but for the time being, I'd like you to simply hold your Entresto on discharge. I understand your blood pressure is normally in this range. Entresto lowers blood pressure and may cause symptomatic hypotension (like the dizziness and fatigue you sometimes experience), particularly in patients who are volume-depleted or taking other blood pressure-lowering medications. The medication has been held to allow blood pressure stabilization before resuming therapy. - Monitor blood pressure: Check blood pressure at home if possible, particularly when standing up from sitting or lying down. Report any symptoms of dizziness, lightheadedness, or fainting to your healthcare provider. - Maintain adequate hydration: Drink fluids as recommended by your healthcare team, unless otherwise instructed. Do not restart Entresto on your own. Your movable bulkhead installer/PCP will determine when it is safe to resume this medication based on: - Blood pressure readings - Absence of symptoms such as dizziness or lightheadedness when standing - Optimization of other medications that may be contributing to low blood pressure Entresto is an important medication for heart failure that reduces the risk of hospitalization and cardiovascular . Temporary discontinuation is usually not permanent, and most patients can successfully restart this medication once blood pressure stabilizes. I am glad you're feeling better. Once again, if you have this chest pain or pressure again, please return to the emergency room. With your cardiac history, any chest pain should be explored further. Also seek immediate medical attention if you experience: - Severe dizziness or fainting - Chest pain or shortness of breath - Worsening leg swelling - Weight gain of more than 2-3 pounds in one day or 5 pounds in one week - Persistent systolic blood pressure below 90 mm Hg Print Language: Malawian Patient Instructions: AFib Dc Stand Alone Forms: PCP List, SBIRT Follow-up Care: Don Darden MD [Physician No Access, Cardiology] TAHER,TOAN M, DO [Primary Care Provider, Internal Medicine] Vitals documented within 30 minutes of discharge?: Yes"
--- NOTE | 2025-03-25 11:48 | PHARMACY PROGRESS NOTE ---
Best Possible Medication History Admit Date and Time: 03/24/25 [id number] Home Medications Medication Instructions Recorded Confirmed Type cholecalciferol (vitamin D3) 50 2,000 unit PO DAILY 03/24/25 History mcg (2,000 unit) capsule (Vitamin D3) sacubitril 24 mg-valsartan 26 mg 0.5 tab PO BID 03/25/25 History tablet (Entresto) Held on 03/25/25. Instructions: Resume on 04/01/25. Please hold until further conversations with your PCP/senior resident care director. dabigatran etexilate 75 mg capsule 75 mg PO BID 03/24/25 History nitroglycerin 0.4 mg sublingual 0.4 mg sublingual Q5M PRN chest 01/02/25 03/25/25 History tablet pain silodosin 4 mg capsule 4 mg PO HS 01/02/25 03/25/25 History methimazole 10 mg tablet 10 mg PO TID 03/24/25 History atorvastatin 80 mg tablet (Lipitor) 80 mg PO QPM 03/2503/25/25 History bisoprolol fumarate 5 mg tablet 5 mg PO BID 03/25/25 1 05/26/24 History finasteride 5 mg tablet 5 mg PO DAILY 03/25/2503/25 History glucosamine sulf dipot 1 cap PO DAILY 03/25/2503/04 History chlr,msm,chond 550 mg-C 30 mg-paxton 1 mg capsule (Glucosamine Chondroitin) multivitamin (Daily Multi-Vitamin 1 tab PO DAILY 03/2503/25/25 History tablet) Processed by: Pharmacy (Medication reconciliation completed by Instructional Technology SpecialistAnushka) Medications reviewed in ED?: No Medication History completed: Yes Patient Interview: Completed Secondary Source(s): Insurance records [facility] Statement: As the person ultimately responsible for medication therapy, providers are able to order a medication from an existing home medication list in [facility] via the "Reconcile Routine" prior to Confirmation of that medication by peer support specialist. Such practice is discouraged except when the physician, in their clinical judgment, deems that a medical need exists for a medication without regard to p revious use.
[2025-03-25 13:42] VITALS: BP 107/52; O2SAT 99
== END 2025-03-25 13:43 | disposition home or self-care (01) ==
LOC: ED 13:27 → MS2 13:27
PROVIDERS: ADMIT Internal Medicine; ATTEND Internal Medicine